=== PATIENT | male | born 1945 | race Caucasian/White ===

== ENCOUNTER → 2017-04-09 | Outpatient (CLI) | END | disposition home or self-care (01) ==

== ENCOUNTER 2018-08-24 10:12 | Emergency (ER) | payer BC ==
[~2018-08-24] VITALS: Ht 172.7 cm; Wt 68.9 kg
[2018-08-24 10:14] VITALS: Ht 172.7 cm; Wt 68.9 kg
[2018-08-24] MEDS ORDERED: LEVO75TA5 PO (11:37)
[2018-08-24] MEDS ORDERED: FINA5TAB4 PO (11:37)
[2018-08-24] MEDS ORDERED: AMLO-147 PO (11:37)
[2018-08-24] MEDS ORDERED: OMEP40CA6 PO (11:38)
[2018-08-24] MEDS ORDERED: SIMV40TA2 PO (11:38)
[2018-08-24] MEDS ORDERED: FLUO40CR9 TP (11:39)
--- NOTE | 2018-08-24 12:51 | ERD ---
ER Documentation Chief Complaint Chief Complaint chest pain x last night HPI 72-year-old male brought to the emergency department by his for evaluation of chest pain. Patient was in his usual state of health until earlier today when he had a brief episode of a left-sided chest discomfort. The pain was brief and self-limited. It was non-provoked. It was isolated to the left side of the chest and did not radiate. There was no shortness of breath or palpitations. There were no fevers or chills or hemoptysis. The patient's took a strip on the patient's apple watch and the was concerned that there might be ST elevations and brought the patient to the emergency department for evaluation. Upon arrival, patient is completely asymptomatic. ROS All systems reviewed and are negative except as per history of present illness. Medications Home Meds Reported Medications Fluorouracil (Fluorouracil) 40 Gm Cream.gm., 40 GM TP NEEDED 08/24/18 Omeprazole* (Omeprazole*) 40 Mg Capsule.dr, 40 MG PO DAILY, #30 CAP 08/24/18 Simvastatin* (Zocor*) 40 Mg Tablet, 40 MG PO QHS, #30 TAB 08/24/18 Levothyroxine Sodium* (Levothyroxine Sodium*) 75 Mcg Tablet, 75 MCG PO BEFORE BREAKFAST, #30 TAB 08/24/18 Amlodipine Besylate* (Amlodipine Besylate*) 10 Mg Tablet, 10 MG PO DAILY, #30 TAB 08/24/18 Finasteride* (Finasteride*) 5 Mg Tablet, 5 MG PO DAILY, TAB 08/24/18 Allergies Allergies: Coded Allergies: No Known Allergy (Unverified , 08/24/18) PMhx/Soc History of Surgery: Yes (PROSTECTOMY, SKIN CANCER REMOVAL FROM SCALP) Anesthesia Reaction: No Hx Neurological Disorder: Yes (LACUNAR INFARC 2006, MENINGITIS 2006) Hx Respiratory Disorders: No Hx Cardiac Disorders: Yes (HTN, CHOLESTEROL) Hx Psychiatric Problems: No Hx Miscellaneous Medical Probl: Yes (CLL) Hx Alcohol Use: Yes (OCCASION WINE) Hx Substance Use: No Hx Tobacco Use: No Smoking Status: Never smoker Physical Exam Vitals Vital Signs Date Temp Pulse Resp B/P (MAP) Pulse Ox O2 O2 Flow FiO2 Time Delivery Rate 08/24/18 59 16 145/69 100 Nasal 11:30 (94) Cannula 08/24/18 Nasal 2 10:35 Cannula 08/24/18 98.1 67 18 169/82 98 10:14 (111) Physical Exam GENERAL: The patient is well developed and appropriate for usual state of health in no apparent distress HEENT: Pupils equal, round, and reactive to light. EOMI. There is no scleral icterus. NECK: C-spine is soft and supple, there is no meningismus. There is no cervical lymphadenopathy. LUNGS: Clear to auscultation bilaterally. There are no rales, wheezes or rhonchi. HEART: Regular rate and rhythm, no murmurs, clicks, rubs or gallops. ABDOMEN: Soft, non-tender, non-distended. There are bowel sounds in all four quadrants. No rebound or guarding. EXTREMITIES: There is no peripheral cyanosis or edema. No focal swelling or erythema. NEURO: The patient moves all four extremities with 5/5 strength. Cranial nerves II - XII are intact. Normal gait. Alert and oriented SKIN: There is no apparent rash or petechiae. HEME/LYMPHATIC: There is no evidence of excessive bruising or lymphedema. PSYCHIATRIC: The patient does not appear anxious or depressed. Result Diagram: 08/24/18 1054 08/24/18 1054 Results 24 hrs Laboratory Tests Test 08/24/18 10:54 White Blood Count 15.6 10^3/ul Red Blood Count 4.54 10^6/ul Hemoglobin 13.9 g/dl Hematocrit 41.7 % Mean Corpuscular Volume 91.9 fl Mean Corpuscular Hemoglobin 30.6 pg Mean Corpuscular Hemoglobin Concent 33.3 g/dl Red Cell Distribution Width 13.7 % Platelet Count 169 10^3/UL Mean Platelet Volume 9.0 fl Immature Granulocytes % 0.500 % Neutrophils % 47.1 % Lymphocytes % 48.4 % Monocytes % 3.5 % Eosinophils % 0.2 % Basophils % 0.3 % Nucleated Red Blood Cells % 0.0 /100WBC Immature Granulocytes # 0.080 10^3/ul Neutrophils # 7.3 10^3/ul Lymphocytes # 7.6 10^3/ul Monocytes # 0.6 10^3/ul Eosinophils # 0.0 10^3/ul Basophils # 0.1 10^3/ul Nucleated Red Blood Cells # 0.0 10^3/ul Sodium Level 140 mmol/L Potassium Level 4.0 mmol/L Chloride Level 101 mmol/L Carbon Dioxide Level 31 mmol/L Anion Gap 8 Blood Urea Nitrogen 26 mg/dl Creatinine 0.78 mg/dl Est Glomerular Filtrat Rate mL/min mL/min Glucose Level 132 mg/dl Calcium Level 9.0 mg/dl Total Bilirubin 0.6 mg/dl Direct Bilirubin 0.00 mg/dl Indirect Bilirubin 0.6 mg/dl Aspartate Amino Transf (AST/SGOT) 25 IU/L Alanine Aminotransferase (ALT/SGPT) 28 IU/L Alkaline Phosphatase 56 IU/L Troponin I < 0.012 ng/ml Total Protein 6.5 g/dl Albumin 4.2 g/dl Globulin 2.30 g/dl Albumin/Globulin Ratio 1.82 Lipase 43 U/L Procedures/MDM Patient was taken to a room, seen and evaluated. Comfort measures were initiated. Diagnostic tests were ordered and reviewed. 3 LEAD RHYTHM STRIP: Normal sinus rhythm without ectopy EK lead EKG reviewed by myself: Normal Sinus Rhythm Normal [place] and intervals No ST elevation, depression, or T wave inversion Impression: Normal EKG RADIOLOGY: Reviewed with the radiologist REEVALUATION: 1250: Diagnostic tests were appreciated and discussed with the patient and family. Patient remained comfortable appearing. Family and patient were comfortable being discharged to follow-up as an outpatient. MED[employer] DECISION MAKIN-year-old male presents with chest pain of uncertain etiology. Differential diagnosis entertained focused on cardiac and other pulmonary concerns. At this time, patient shows no evidence of this being cardiac ischemia. Patient has no significant cardiac risk factors, a normal- appearing EKG with a negative troponin and a history of what appears to be an atypical type chest pain. As the patient is comfortable following up as an outpatient and as he is low risk at this time for adverse outcome, patient is appropriate for discharge with his family. Departure Diagnosis: Primary Impression: Chest pain Condition: Stable Patient Instructions: Chest Pain, Uncertain Cause Additional Instructions: See your doctor for follow-up as discussed. Take a copy of your test results, if appropriate, to this follow-up visit. See your doctor or return here if your symptoms do not improve as expected. At any time, please return to the emergency department for any change or wors ening in her symptoms. VIDA AMAYA Aug 24, 2018 12:51
[2018-08-24 13:00] VITALS: BP 109/58; PULSE 95; RESP 18
== END 2018-08-24 13:00 | disposition home or self-care (01) ==
LOC: E/R 10:12
DX: R07.89 Other chest pain (principal); R40.2142 Coma scale, eyes open, spontaneous, at arrival to emergency department; R40.2252 Coma scale, best verbal response, oriented, at arrival to emergency department; R40.2362 Coma scale, best motor response, obeys commands, at arrival to emergency department; I10 Essential (primary) hypertension; Z85.828 Personal history of other malignant neoplasm of skin
CPT/HCPCS: 36415; 71045; 80053; 83690; 84484; 85025; 93005